=== PATIENT | female | born 1945 | race Native Hawaiian/Other Pacific Islander ===

== ENCOUNTER 2020-07-20 16:07 | Inpatient (IN) | payer OTHER ==
[2020-07-20] MEDS ORDERED: dilTIAZem 25 MG/5 ML INJ IV ONE (16:30)
--- NOTE | 2020-07-20 16:32 | Emergency Department Report ---
HPI - General Time Seen by Provider: 07/20/20 16:27 - HPI HPI: This is a 74-year-old female presents to the emergency department via EMS from home with complaint of generalized weakness and diarrhea over the past few days. When EMS arrived at her home she was sitting on the toilet due to the diarrhea. They found the patient to be in atrial fibrillation with RVR with a heart rate going between 150 to 190 bpm. This is new onset for the patient as she denies having any past medical history. She does not have a primary care physician but does follow-up for yearly blood work through a local clinic. The patient does have some history of orthopedic or spinal problems for which the patient sometimes gets injections. She denies any recent travel or sick contacts at home. Patient denies any chest pain, palpitations, lower extremity swelling, nausea, vomiting or fever. Patient was found to have a pulse ox of 65% on room air with EMS and was placed on a nonrebreather. Initially the pulse ox went up into the 90s but then went back down. She denies any tobacco or illicit drug use. ED Review of Systems ROS: Stated complaint: WEAKNESS Other details as noted in HPI Comment: All other systems reviewed and negative Constitutional: denies: chills, fever Eyes: denies: eye pain, vision change ENT: denies: ear pain, throat pain Respiratory: shortness of breath. denies: cough Cardiovascular: denies: chest pain, edema Gastrointestinal: diarrhea. denies: vomiting Genitourinary: denies: dysuria, discharge Musculoskeletal: denies: joint swelling, arthralgia Skin: denies: rash, lesions Neurological: denies: headache, weakness Physical Exam - Physical Exam Physical Exam: GENERAL: Patient is ill-appearing. HENT: Normocephalic. Atraumatic. Patient has moist mucous membranes. EYES: Extraocular motions are intact. NECK: Supple. Trachea is midline. CHEST/LUNGS: Rhonchi heard bilaterally. The patient has tachypnea and accessory muscle use. There is conversational dyspnea. HEART/CARDIOVASCULAR: Irregular rhythm with moderate tachycardia. ABDOMEN: Abdomen is soft, nontender. Patient has normal bowel sounds. SKIN: Skin is warm and dry. NEURO: The patient is awake, alert, and oriented. The patient is cooperative. The patient has no focal neurologic deficits. Normal speech. MUSCULOSKELETAL: There is no tenderness or deformity. There is no limitation range of motion. ED Course - Reevaluation(s) Reevaluation #1: 07/20/20 16:34 RT came to bedside to evaluate the patient. The patient still has tachypnea despite being on a nonrebreather. She was placed on BiPAP. The patient is in A. fib with RVR with a rate of 130 to 150 bpm. Orders have been placed for an IV placement, IV fluid and Cardizem. - ABG Interpretation Ph: [phone] PCO2: 33 PO2: 52 Bicarbonate: 20 Interpretation: other (Hypoxemia) ED Medical Decision Making - Lab Data Result diagrams: 07/20/20 17:04 07/20/20 17:04 - EKG Data -: EKG Interpreted by Me - EKG Data When compared to previous EKG there are: previous EKG unavailable Interpretation: other (Atrial fibrillation with a rate of 137 bpm. PVCs. Normal axis. Q waves to the inferior leads) - Radiology Data Radiology results: image reviewed interpreted by me: Abdominal x-ray shows nonspecific nonobstructive bowel gas. No free air. Chest x-ray shows bilateral patchy infiltrates concerning for pneumonia. No obvious pleural effusions. No pneumothorax. - Medical Decision Making The EMS call for this patient initially was for some generalized weakness and diarrhea over the past few days. Upon arrival the patient was found to have hypoxia with a room air pulse ox of about 65%. She was placed on a nonrebreather which did initially improve the oxygen saturation but then it started to come down again. During their initial evaluation the patient was also found to have an irregular rhythm and a heart rate going between 150 to 190 bpm. Upon arrival to the emergency department the patient appears to be in atrial fibrillation with RVR. The heart rate at this time is between 130 and 150 bpm. The patient also appears to have some respiratory distress. She has tachypnea, rhonchorous breath sounds, accessory muscle use and conversational dyspnea. The patient still had some hypoxia on the nonrebreather. We tried high flow oxygen by nasal cannula without any improvement so the patient was placed on BiPAP. The patient's pulse ox went up into the 90s and her tachypnea decreased, as did the work of breathing. The EKG confirms A. fib with RVR. The patient was given a dose of Cardizem which did provide rate control but she did not convert back to a sinus rhythm. An ABG was done that did not show any significant acid-base disturbances but did show hypoxemia with a PO2 of 52. An abdominal x-ray was done secondary to the patient's significant diarrhea complaints but there was no acute process found. Chest x-ray shows patchy bilateral infiltrates concerning for pneumonia. Blood cultures were sent and the patient was started on azithromycin. Given the shortness of breath, hypoxemia, and the x-ray results of bilateral pneumonia, along with this current pandemic, the patient is high suspicion for COVID-19. The patient was placed in isolation and on droplet precautions. She was given a dose of Solu-Medrol. The patient also initially presented with some hypotension and was given IV fluid resuscitation with improvement. Patient's labs shows some hypokalemia with a potassium of 3, acute renal insufficiency with a GFR of about 30, and elevated inflammatory markers consistent with COVID-19 such as D-dimer, ferritin, LDH and CRP. The patient will be admitted to the ICU on BiPAP and was accepted for admission by the hospitalist, Dr. Fenton. Critical Care Time: Yes Critical care time in (mins) excluding proc time.: 35 Critical care attestation.: If time is entered above; I have spent that time in minutes in the direct care of this critically ill patient, excluding procedure time. Critical care time was spent on this patient in doing her initial evaluation, multiple reevaluations, ordering and interpretation of labs and imaging, IV steroids and antibiotics, supplemental oxygen and titration of the BiPAP, and multiple discussions with the patient. Critical Care Time: 35 minutes ED Disposition Clinical Impression: Acute hypoxemic respiratory failure, Suspected 2019 novel coronavirus infection, Acute kidney injury (IKE) with acute tubular necrosis (ATN), New onset atrial fibrillation, Atrial fibrillation with RVR Pneumonia Qualifiers: Pneumonia type: due to unspecified organism Laterality: bilateral Lung location: unspecified part of lung Qualified Code(s): J18.9 - Pneumonia, unspecified organism Disposition: OP ADMIT IP TO THIS HOSP Is pt being admited?: Yes Condition: Serious Time of Disposition: 22:43
[2020-07-20] MEDS: SODIUM CHLORIDE 0.9% 1000 ML 1,000 ML IV ONE ×2 (16:52→19:47)
[2020-07-20 17:22] LABS: Basophils % (Auto) 0.1 % (0.0-1.8); Hematocrit 40.3 % (30.3-42.9); Hemoglobin 13.1 gm/dl (10.1-14.3); Lymphocytes # (Auto) 0.6 K/mm3 (1.2-5.4); Lymphocytes % (Auto) 6.9 % (13.4-35.0); Mean Corpuscular HGB Conc 33 % (30-34); Mean Corpuscular Volume 83 fl (79-97); Monocytes # (Auto) 0.5 K/mm3 (0.0-0.8); Monocytes % (Auto) 5.2 % (0.0-7.3); Platelet Count 240 K/mm3 (140-440); Red Blood Count 4.86 M/mm3 (3.65-5.03); Red Cell Distribution Width 14.2 % (13.2-15.2)
[2020-07-20] MEDS ORDERED: methylPREDNISolone Sod Succinate 125 MG/2 ML INJ IV ONE (17:23)
--- NOTE | 2020-07-20 17:23 | XRay Report ---
CHEST AND ABDOMINAL SERIES HISTORY: Diarrhea. Arrhythmias. Chest one view: Heart size is mildly enlarged. Opacity is scattered diffusely. Pneumonia is favored o elizabeth edema. Two-view abdomen: Gas is scattered throughout the abdomen in a nonobstructive fashion. Negative for f ree air or suspicious calcification. Signer Name: Jhoan Ramires MD Signed: 07/20/2020 5:18 PM Workstation Name: [id number]
[2020-07-20] MEDS ORDERED: AZITHROMYCIN/NS 500 MG/250 ML 500 MG/250 ML BAG IV ONE (17:24)
[2020-07-20 17:31] LABS: INR 1.05 (0.87-1.13); Partial Thromboplastin Time 27.7 Sec. (24.2-36.6)
[2020-07-20 17:40] LABS: Alanine Aminotransferase 16 units/L (7-56); Albumin 2.5 g/dL (3.9-5); BUN/Creatinine Ratio 28; Blood Urea Nitrogen 44 mg/dL (7-17); Calcium 6.3 mg/dL (8.4-10.2); Hemolysis Index 7
[2020-07-20 17:50] LABS: Free T4 (Free Thyroxine) 1.14 ng/dL (0.76-1.46)
--- NOTE | 2020-07-20 18:23 | History and Physical Report ---
History of Present Illness Chief complaint: I feel sick History of present illness: 74 YO Female with No PMH presents to ED for evaluation. Patient reports "I feel sick". Patient states that she has experienced generalized weakness, multiple loose stools, shortness of breath, malaise, fatigue, decreased exercise buddy erance, and dry cough over the past 1 week with worsening symptoms over the past 3 days. EMS was notified and upon arrival the patient was found to be in distress with a pulse oximetry of 65% on room air. The patient was placed on nonrebreather mask and transported to [facility] for further evaluation and care of the aforementioned symptoms. The patient was seen and evaluated in the emergency department. All lab and imaging studies reviewed. Patient was found to have a pulse oximetry of 70% on room air which is consistent with acute hypoxemic respiratory failure. Chest x-ray revealed bilateral pneumonia, the patient was also found to have acute kidney injury, acidosis, as well as new onset atrial fibrillation with rapid ventricular response (heart rate 150-190 bpm). The patient was treated with medical cardioversion with normalization of patient heart rate. Patient admitted to medical floor and initiated on pneumonia protocol as well as coronavirus protocol. Cardiology team consulted in ED. Echocardiogram ordered and is pending at time of admission. Patient denies fever, chills, chest pain, palpitations, prolonged travel/immobility, individual/family history of DVT/PE/bleeding/blood clotting disorders, or known ill contacts. No prior admission for review. No medication listed at time of admission for reconciliation. Advanced care planning conducted in ED. Past History Past Medical History: No medical history, other (Reviewed) Past Surgical History: No surgical history, Other (Reviewed) Social history: , lives with family. denies: smoking, alcohol abuse, prescription drug abuse Family history: no significant family history, other (Reviewed) Medications and Allergies Allergies Allergy/AdvReac Type Severity Reaction Status Date / Time Penicillins Allergy Unknown Verified 07/20/20 17:25 Active Meds: Active Medications Sodium Chloride (Nacl 0.9% 1000 Ml) 1,000 mls @ 250 mls/hr IV ONCE ONE Stop: 07/20/20 20:27 Last Admin: 07/20/20 16:52 Dose: 250 mls/hr Documented by: Azithromycin (Zithromax/Ns) 500 mg in 250 mls @ 250 mls/hr IV ONCE ONE; Protocol Stop: 07/20/20 18:23 Potassium Chloride (Kcl 10meq/100ml) 10 meq in 100 mls @ 100 mls/hr IV Q1H KLAUS Stop: 07/20/20 20:59 Review of Systems Constitutional: weakness, malaise, lethargy, no weight gain, no fever, no chills Ears, nose, mouth and throat: no ear pain, no ear discharge, no nasal congestion Breasts: no change in shape Cardiovascular: no palpitations, no edema Respiratory: cough, shortness of breath, congestion, pain on inspiration, no pleurisy Gastrointestinal: diarrhea, no abdominal pain, no nausea, no vomiting, no constipation, no change in bowel habits Genitourinary Female: no pelvic pain, no flank pain, no dysuria, no urinary frequency, no urgency Rectal: no pain, no incontinence, no bleeding Musculoskeletal: no neck stiffness, no neck pain, no shooting arm pain, no arm numbness/tingling, no low back pain Integumentary: no rash, no pruritis, no redness, no sores, no wounds Neurological: no transient paralysis, no paralysis, no weakness, no parathesias, no numbness, no tingling Psychiatric: no anxiety, no memory loss, no change in sleep habits, no sleep disturbances, no hypersomnia, no change in appetite, no change in libido Endocrine: no cold intolerance, no heat intolerance, no polyphagia, no polydipsia, no polyuria, no excessive sweating Hematologic/Lymphatic: no easy bruising, no easy bleeding, no lymphadenopathy, no lymphedema Allergic/Immunologic: no urticaria, no wheezing, no anaphylaxis Exam - Constitutional Vitals: Temp Pulse Resp BP Pulse Ox 98.0 F 104 H 36 H 114/71 91 07/20/20 16:34 07/20/20 18:01 07/20/20 18:01 07/20/20 18:01 07/20/20 18:01 General appearance: Present: mild distress, obese - EENT Eyes: Present: PERRL ENT: hearing intact, clear oral mucosa - Neck Neck: Present: supple, normal ROM - Respiratory Respiratory effort: labored, accessory muscle use, stridor Respiratory: bilateral: diminished, rhonchi - Cardiovascular Rhythm: irregularly irregular Heart Sounds: Present: S1 & S2. Absent: rub, click - Extremities Extremities: pulses symmetrical, No edema Peripheral Pulses: within normal limits - Abdominal General gastrointestinal: Present: soft, non-tender, non-distended, normal bowel sounds Female genitourinary: Present: normal - Integumentary Integumentary: Present: clear, warm, dry - Musculoskeletal Musculoskeletal: gait normal, strength equal bilaterally - Psychiatric Psychiatric: appropriate mood/affect, intact judgment & insight - Neurologic Neurologic: CNII-XII intact, moves all extremities HEART Score - HEART Score Troponin: Troponin T < 0.010 ng/mL (0.00-0.029) 07/20/20 17:04 Results - Labs CBC & Chem 7: 07/20/20 17:04 07/20/20 17:04 Labs: Abnormal lab results 07/20/20 07/20/20 07/20/20 Range/Units 17:04 17:04 17:04 MCH 27 L (28-32) pg Lymph % (Auto) 6.9 L (13.4-35.0) % Lymph # (Auto) 0.6 L (1.2-5.4) K/mm3 Seg Neutrophils % 87.8 H (40.0-70.0) % Seg Neutrophils # 8.1 H (1.8-7.7) K/mm3 D-Dimer 328.25 H (0-234) ng/mlDDU Potassium 3.0 L (3.6-5.0) mmol/L Carbon Dioxide 18 L (22-30) mmol/L BUN 44 H (7-17) mg/dL Creatinine 1.6 H (0.6-1.2) mg/dL Glucose 142 H (65-100) mg/dL Calcium 6.3 L (8.4-10.2) mg/dL NT-Pro-B Natriuret Pep 2862 H (0-900) pg/mL Total Protein 4.9 L (6.3-8.2) g/dL Albumin 2.5 L (3.9-5) g/dL TSH (0.270-4.200) mlU/mL 07/20/20 Range/Units 17:04 MCH (28-32) pg Lymph % (Auto) (13.4-35.0) % Lymph # (Auto) (1.2-5.4) K/mm3 Seg Neutrophils % (40.0-70.0) % Seg Neutrophils # (1.8-7.7) K/mm3 D-Dimer (0-234) ng/mlDDU Potassium (3.6-5.0) mmol/L Carbon Dioxide (22-30) mmol/L BUN (7-17) mg/dL Creatinine (0.6-1.2) mg/dL Glucose (65-100) mg/dL Calcium (8.4-10.2) mg/dL NT-Pro-B Natriuret Pep (0-900) pg/mL Total Protein (6.3-8.2) g/dL Albumin (3.9-5) g/dL TSH 0.164 L (0.270-4.200) mlU/mL Assessment and Plan - Patient Problems (1) Acute hypoxemic respiratory failure Current Visit: Yes Status: Acute Plan to address problem: Chest x-ray, supplemental oxygen, pulse oximetry, nebulizer therapy, prone positioning while in bed, noninvasive positive pressure ventilation as clinically indicated. (2) Suspected 2019 novel coronavirus infection Current Visit: Yes Status: Acute Plan to address problem: Coronavirus protocol: Contact precaution, isolation precautions, IV antibiotic therapy, IV steroid therapy, vitamin C supplementation, vitamin D supplementation, zinc supplementation, prophylactic anticoagulation. (3) Pneumonia Current Visit: Yes Status: Acute Plan to address problem: Pneumonia protocol: Chest x-ray, CBC, CMP, supplemental oxygen, pulse oximetry, nebulizer therapy, blood culture. (4) Obesity hypoventilation syndrome Current Visit: Yes Status: Acute Plan to address problem: Balanced diet, increase physical activity at discharge, outpatient pulmonary follow-up for sleep study. (5) Acute kidney injury (IKE) with acute tubular necrosis (ATN) Current Visit: Yes Status: Acute Plan to address problem: Supportive care, BMP, repeat BMP in a.m., encourage oral intake, care is taken to avoid fluid overload to decrease likelihood of pulmonary edema. Monitor fluid balance. (6) Metabolic acidosis Current Visit: Yes Status: Acute Plan to address problem: Supportive care, BMP, repeat BMP in a.m. (7) DVT prophylaxis Current Visit: Yes Status: Acute Plan to address problem: SCD to bilateral lower extremities while in bed, prophylactic anticoagulation (8) Advance care planning Current Visit: Yes Status: Acute Plan to address problem: Disease education conducted, care plan discussed, diagnosis discussed, prognosis discussed, patient knowledges understanding agree with care plan, +30 minutes.
[2020-07-20] MEDS ORDERED: ACETAMINOPHEN 325 MG TAB PO PRN (18:25)
[2020-07-20] MEDS ORDERED: ONDANSETRON 4 MG/2 ML INJ IV PRN (18:25)
[2020-07-20] MEDS ORDERED: ALBUTEROL 2.5 MG/3 ML NEBU IH PRN (18:25)
[2020-07-20 18:46] LABS: C-Reactive Protein 11.9 mg/dL (0.00-1.30)
[2020-07-20] MEDS: POTASSIUM CHLORIDE 10 MEQ 10 MEQ/100 ML BAG IV SCH ×3 (19:34→21:43)
[2020-07-20] MEDS ORDERED: cefTRIAXone/NS 2 GM/100 ML 2 GM/100 ML BAG IV SCH (20:00)
[2020-07-20] MEDS: ASCORBIC ACID 500 MG TAB PO SCH (22:45)
[2020-07-20] MEDS: HEPARIN 5,000 UNIT/1 ML VIAL SUB-Q SCH (22:46)
[2020-07-20] MEDS: ZINC SULFATE 220 MG CAP PO SCH (22:46)
[2020-07-20] MEDS: FAMOTIDINE 20 MG TAB PO SCH (22:46)
[2020-07-21] MEDS: dilTIAZem 30 MG TAB PO SCH ×4 (00:05→17:46)
[2020-07-21] MEDS: methylPREDNISolone Sod Succinate 40 MG/1 ML INJ IV SCH ×2 (02:26→09:18)
[2020-07-21 03:30] LABS: Basophils % (Auto) 0.2 % (0.0-1.8); Eosinophils % (Auto) 0.1 % (0.0-4.3); Hematocrit 41.4 % (30.3-42.9); Hemoglobin 13.6 gm/dl (10.1-14.3); Lymphocytes # (Auto) 1.1 K/mm3 (1.2-5.4); Lymphocytes % (Auto) 9.8 % (13.4-35.0); Mean Corpuscular HGB Conc 33 % (30-34); Mean Corpuscular Volume 84 fl (79-97); Monocytes # (Auto) 0.4 K/mm3 (0.0-0.8); Monocytes % (Auto) 3.6 % (0.0-7.3); Platelet Count 247 K/mm3 (140-440); Red Blood Count 4.95 M/mm3 (3.65-5.03); Red Cell Distribution Width 14.3 % (13.2-15.2)
[2020-07-21 03:47] LABS: Calcium 7.1 mg/dL (8.4-10.2)
[2020-07-21] MEDS: HEPARIN 5,000 UNIT/1 ML VIAL SUB-Q SCH (09:16)
[2020-07-21] MEDS: ZINC SULFATE 220 MG CAP PO SCH ×2 (09:18→21:01)
[2020-07-21] MEDS: FAMOTIDINE 20 MG TAB PO SCH ×2 (09:18→21:01)
[2020-07-21] MEDS: ASCORBIC ACID 500 MG TAB PO SCH ×2 (09:18→21:01)
[2020-07-21] MEDS ORDERED: CHOLECALCIFEROL (VIT D3) 1000 UNIT (25 mcg) TAB PO SCH (10:00)
--- NOTE | 2020-07-21 10:15 | Consultation ---
History of Present Illness - Reason for Consult Consult date: 07/21/20 Rule out COVID-19 Requesting physician: NATHAN GREY - History of Present Illness 74 years old female with history of morbid obesity, chronic lumbar spine problems, admitted on 07/20/2020 secondary to a week history of generalized malaise, weakness, dry cough, shortness of breath, symptoms worsened in the last 3 days. On arrival EMS O2 sats were down to 35%. Patient placed on nonrebreather mask. In the ED, initial temperature 98, HR, RR 21, O2 sat 95, BP 124/52. Sats dropped to 87%. Blood pressure dropped to 84/29. Initial WBC 9.2. Hemoglobin 13.1 platelet 240. D-dimer 328. PaO2 52. Creatinine 1.6. CRP 11. Ferritin 774. Procalcitonin 0.4. Patient was found to have RVR A. fib in the ED. Chest x-ray shows bilateral infiltrates. Review of Systems: reviewed ED and H&P notes. Review of system deferred to minimize COVID-19 transmission. Past History Past Medical History: No medical history, other (Reviewed) Past Surgical History: No surgical history, Other (Reviewed) Social history: , lives with family. denies: smoking, alcohol abuse, prescription drug abuse Family history: no significant family history, other (Reviewed) Medications and Allergies Allergies Allergy/AdvReac Type Severity Reaction Status Date / Time Penicillins Allergy Unknown Verified 07/20/20 17:25 Active Meds: Active Medications Acetaminophen (Acetaminophen 325 Mg Tab) 650 mg PO Q4H PRN PRN Reason: Pain MILD(1-3)/Fever >100.5/ALONSO Albuterol (Albuterol 2.5 Mg/3 Ml Nebu) 2.5 mg IH Q4HRT PRN PRN Reason: Shortness Of Breath Ascorbic Acid (Ascorbic Acid 500 Mg Tab) 500 mg PO BID [facility] Last Admin: 07/21/20 09:18 Dose: Not Given Documented by: Cholecalciferol (Cholecalciferol (Vit D3) 1000 Unit (25 Mcg) Tab) 1,000 unit PO QDAY [facility] Last Admin: 07/21/20 09:24 Dose: Not Given Documented by: Diltiazem HCl (Diltiazem 30 Mg Tab) 30 mg PO Q6HR [facility] Last Admin: 07/21/20 05:25 Dose: 30 mg Documented by: Famotidine (Famotidine 20 Mg Tab) 20 mg PO BID [facility] Last Admin: 07/21/20 09:18 Dose: Not Given Documented by: Heparin Sodium (Porcine) (Heparin 5,000 Unit/1 Ml Vial) 5,000 unit SUB-Q Q12HR [facility] Last Admin: 07/21/20 09:16 Dose: 5,000 unit Documented by: Azithromycin (Zithromax/Ns) 500 mg in 250 mls @ 250 mls/hr IV Q24H [facility]; Protocol Methylprednisolone Sodium Succinate (Methylprednisolone Sod Succinate 40 Mg/1 Ml Inj) 40 mg IV Q8H [facility] Last Admin: 07/21/20 09:18 Dose: 40 mg Documented by: Ondansetron HCl (Ondansetron 4 Mg/2 Ml Inj) 4 mg IV Q8H PRN PRN Reason: Nausea And Vomiting Sodium Chloride (Sodium Chloride 0.9% 10 Ml Flush Syringe) 10 ml IV BID [facility] Last Admin: 07/21/20 09:25 Dose: 10 ml Documented by: Sodium Chloride (Sodium Chloride 0.9% 10 Ml Flush Syringe) 10 ml IV PRN PRN PRN Reason: LINE FLUSH Zinc Sulfate (Zinc Sulfate 220 Mg Cap) 220 mg PO BID [facility] Last Admin: 07/21/20 09:18 Dose: Not Given Documented by: Physical Examination - Physical Exam Narrative exam: Physical exam deferred to minimize COVID-19 transmission during pandemic. ER and internal medicine physical examination notes reviewed. - Constitutional Vitals: Vital Signs Temp Pulse Resp BP Pulse Ox 97.9 F 89 29 H 105/33 91 07/21/20 04:08 07/21/20 05:25 07/21/20 04:30 07/21/20 04:08 07/21/20 04:30 Temperature -Last 24 Hours Temperature 97.9 F Temperature 98.0 F Temperature 98.0 F Results - Labs CBC & Chem 7: 07/21/20 03:13 07/21/20 03:13 Labs: Abnormal lab results 07/20/20 07/20/20 07/20/20 Range/Units 17:04 17:04 17:04 MCH 27 L (28-32) pg Lymph % (Auto) 6.9 L (13.4-35.0) % Lymph # (Auto) 0.6 L (1.2-5.4) K/mm3 Seg Neutrophils % 87.8 H (40.0-70.0) % Seg Neutrophils # 8.1 H (1.8-7.7) K/mm3 D-Dimer 328.25 H (0-234) ng/mlDDU POC ABG pO2 (83-108) mmHg ABG Oxyhemoglobin (94-98) ABG Glucose (65-95) mg/dL Sodium (137-145) mmol/L Potassium 3.0 L (3.6-5.0) mmol/L Chloride (98-107) mmol/L Carbon Dioxide 18 L (22-30) mmol/L BUN 44 H (7-17) mg/dL Creatinine 1.6 H (0.6-1.2) mg/dL Glucose 142 H (65-100) mg/dL Calcium 6.3 L (8.4-10.2) mg/dL Ferritin (10.0-200.0) ng/mL Lactate Dehydrogenase (91-180) units/L C-Reactive Protein (0.00-1.30) mg/dL NT-Pro-B Natriuret Pep 2862 H (0-900) pg/mL Total Protein 4.9 L (6.3-8.2) g/dL Albumin 2.5 L (3.9-5) g/dL TSH (0.270-4.200) mlU/mL Arterial Blood Glucose (65-95) mg/dL Arterial Blood Ionized Calcium (4.6-5.3) mg/dL 07/20/20 07/20/20 07/20/20 Range/Units 17:04 17:59 17:59 MCH (28-32) pg Lymph % (Auto) (13.4-35.0) % Lymph # (Auto) (1.2-5.4) K/mm3 Seg Neutrophils % (40.0-70.0) % Seg Neutrophils # (1.8-7.7) K/mm3 D-Dimer (0-234) ng/mlDDU POC ABG pO2 (83-108) mmHg ABG Oxyhemoglobin (94-98) ABG Glucose (65-95) mg/dL Sodium (137-145) mmol/L Potassium (3.6-5.0) mmol/L Chloride (98-107) mmol/L Carbon Dioxide (22-30) mmol/L BUN (7-17) mg/dL Creatinine (0.6-1.2) mg/dL Glucose (65-100) mg/dL Calcium (8.4-10.2) mg/dL Ferritin 774.0 H (10.0-200.0) ng/mL Lactate Dehydrogenase 611 H (91-180) units/L C-Reactive Protein 11.90 H (0.00-1.30) mg/dL NT-Pro-B Natriuret Pep (0-900) pg/mL Total Protein (6.3-8.2) g/dL Albumin (3.9-5) g/dL TSH 0.164 L (0.270-4.200) mlU/mL Arterial Blood Glucose (65-95) mg/dL Arterial Blood Ionized Calcium (4.6-5.3) mg/dL 07/20/20 07/21/20 07/21/20 Range/Units 19:33 03:13 03:13 MCH (28-32) pg Lymph % (Auto) 9.8 L (13.4-35.0) % Lymph # (Auto) 1.1 L (1.2-5.4) K/mm3 Seg Neutrophils % 86.3 H (40.0-70.0) % Seg Neutrophils # 9.4 H (1.8-7.7) K/mm3 D-Dimer (0-234) ng/mlDDU POC ABG pO2 52.0 L (83-108) mmHg ABG Oxyhemoglobin 84.1 L (94-98) ABG Glucose 142 H (65-95) mg/dL Sodium 121 L D (137-145) mmol/L Potassium (3.6-5.0) mmol/L Chloride 89.8 L (98-107) mmol/L Carbon Dioxide 19 L (22-30) mmol/L BUN 49 H (7-17) mg/dL Creatinine 1.5 H (0.6-1.2) mg/dL Glucose 149 H (65-100) mg/dL Calcium 7.1 L (8.4-10.2) mg/dL Ferritin (10.0-200.0) ng/mL Lactate Dehydrogenase (91-180) units/L C-Reactive Protein (0.00-1.30) mg/dL NT-Pro-B Natriuret Pep (0-900) pg/mL Total Protein (6.3-8.2) g/dL Albumin (3.9-5) g/dL TSH (0.270-4.200) mlU/mL Arterial Blood Glucose 142 H (65-95) mg/dL Arterial Blood Ionized Calcium 4.3 L (4.6-5.3) mg/dL Assessment and Plan Cultures: Blood culture pending SARS CoV2 PCR pending Assessment: 74 years old female with history of morbid obesity, chronic lumbar spine problems, admitted on 07/20/2020 secondary to a week history of generalized malaise, weakness, dry cough, shortness of breath, symptoms worsened in the last 3 days: #Severe sepsis: Present patient with tachycardia, hypotension, hypoxia, IKE; likely secondary to bilateral pneumonia. Procalcitonin elevated at 0.4 in the setting of acute renal failure, unclear significance. #Bilateral pneumonia: High suspicion for COVID-19 pneumonia. Ferritin 774. CRP 11. Chest x-ray with bilateral infiltrates. #Acute hypoxemic respiratory failure: O2 sat dropped to 70s. Patient currently on #IKE: Likely secondary to severe COVID-19 infection #RVR A. fib: Due to sepsis Recommendations: -Pulmonary consult -Follow up SARS-CoV-2 PCR if positive start Dexamethasone 6 mg IV/PO daily for 10 days and Remdesivir for 5 days -Monitor inflammatory markers - ferritin, Ddimer, CRP, LDH -Continue anticoagulation per System Protocol -Prone positioning as possible -Continue ceftriaxone and azithromycin, for now -Follow-up blood cultures All laboratory, cultures and imaging were reviewed. Guarded prognosis Will follow Mary Meade MD Infectious Diseases Media [employer]anner [facility] [place], [facility] ([facility] M [phone] O [phone]
--- NOTE | 2020-07-21 10:21 | Progress Note ---
Assessment and Plan Assessment and plan: -- Acute hypoxemic respiratory failure Current Visit: Yes Status: Acute Plan to address problem: Probably secondary to reactive airway disease Oxygen titrate O2 sats to more than 90%, BiPAP as needed Nebulizers, IV steroids, IV antibiotics, inhalation steroids --New onset A. fib with rapid ventricular rate; Current Visit: Yes Status: Acute Plan to address problem: on Cardizem, cardiology evaluation noted and appreciated, patient is on heparin drip Closely monitor --PUI /suspected 2019 novel coronavirus infection Current Visit: Yes Status: Acute Plan to address problem: Isolation protocols, mack PCR test Inflammatory markers, ID consult if needed --Pneumonia Current Visit: Yes Status: Acute Plan to address problem: pneumonia protocol: Empiric antibiotics Rocephin and Zithromax Follow mack PCR test, procalcitonin levels high --Obesity hypoventilation syndrome Current Visit: Yes Status: Acute Plan to address problem: Oxygen/BiPAP as needed, if no improvement intubated Pulmonary consult if needed. --Morbid obesity; BMI 43.0 Current Visit: Yes Status: Acute Plan to address problem: Patient's respiratory symptoms probably secondary to obesity hypoventilation syndrome Oxygen, nebulizers, pulmonary consultation. --Possible KATY; Current Visit: Yes Status: Acute Plan to address problem: CPAP/BiPAP at night and as needed Patient needs sleep studies to rule out KATY --Acute kidney injury (IKE) ATN Current Visit: Yes Status: Acute Plan to address problem: Supportive care, BMP, repeat BMP in a.m., encourage oral intake, care is taken to avoid fluid overload to decrease likelihood of pulmonary edema. Monitor fluid balance. --Metabolic acidosis Current Visit: Yes Status: Acute Plan to address problem: Supportive care, BMP, repeat BMP in a.m. -- DVT prophylaxis Current Visit: Yes Status: Acute Plan to address problem: SCD to bilateral lower extremities while in bed, prophylactic anticoagulation -- Advance care planning Current Visit: Yes Status: Acute Plan to address problem: Disease education conducted, care plan discussed, diagnosis discussed, prognosis discussed, patient knowledges understanding agree with care plan, Closely monitor the patient and adjust management as needed Plan of care reviewed with the patient and her nurse History Interval history: I have seen and examined the patient at the bedside this morning Patient's chart and medications reviewed Patient is in acute respiratory distress on BiPAP saturating well Morbidly obese, alert and awake responding appropriately Vital signs reviewed Hospitalist Physical - Constitutional Vitals: Temp Pulse Resp BP Pulse Ox 97.9 F 89 29 H 105/33 91 07/21/20 04:08 07/21/20 05:25 07/21/20 04:30 07/21/20 04:08 07/21/20 04:30 General appearance: Present: mild distress, well-nourished, obese (Morbidly obese), other (On BiPAP) - EENT Eyes: Present: PERRL, EOM intact - Neck Neck: Present: supple, normal ROM - Respiratory Respiratory effort: normal Respiratory: bilateral: diminished, rhonchi, negative: rales, wheezing - Cardiovascular Rhythm: irregularly irregular Heart Sounds: Present: S1 & S2 - Extremities Extremities: no ischemia, No edema - Abdominal General gastrointestinal: soft, non-tender, non-distended, normal bowel sounds - Integumentary Integumentary: Present: clear, warm - Psychiatric Psychiatric: appropriate mood/affect, cooperative - Neurologic Neurologic: moves all extremities HEART Score - HEART Score Troponin: Troponin T < 0.010 ng/mL (0.00-0.029) 07/21/20 00:00 Results - Labs CBC & Chem 7: 07/21/20 03:13 07/21/20 03:13 Labs: Laboratory Last Values WBC 10.9 K/mm3 (4.5-11.0) 07/21/20 03:13 RBC 4.95 M/mm3 (3.65-5.03) 07/21/20 03:13 Hgb 13.6 gm/dl (10.1-14.3) 07/21/20 03:13 Hct 41.4 % (30.3-42.9) 07/21/20 03:13 MCV 84 fl (79-97) 07/21/20 03:13 MCH 28 pg (28-32) 07/21/20 03:13 MCHC 33 % (30-34) 07/21/20 03:13 RDW 14.3 % (13.2-15.2) 07/21/20 03:13 Plt Count 247 K/mm3 (140-440) 07/21/20 03:13 Lymph % (Auto) 9.8 % (13.4-35.0) L 07/21/20 03:13 [place] % (Auto) 3.6 % (0.0-7.3) 07/21/20 03:13 Eos % (Auto) 0.1 % (0.0-4.3) 07/21/20 03:13 Baso % (Auto) 0.2 % (0.0-1.8) 07/21/20 03:13 Lymph # (Auto) 1.1 K/mm3 (1.2-5.4) L 07/21/20 03:13 [place] # (Auto) 0.4 K/mm3 (0.0-0.8) 07/21/20 03:13 Eos # (Auto) 0.0 K/mm3 (0.0-0.4) 07/21/20 03:13 Baso # (Auto) 0.0 K/mm3 (0.0-0.1) 07/21/20 03:13 Seg Neutrophils % 86.3 % (40.0-70.0) H 07/21/20 03:13 Seg Neutrophils # 9.4 K/mm3 (1.8-7.7) H 07/21/20 03:13 PT 13.5 Sec. (12.2-14.9) 07/20/20 17:04 INR 1.05 (0.87-1.13) 07/20/20 17:04 APTT 27.7 Sec. (24.2-36.6) 07/20/20 17:04 D-Dimer 328.25 ng/mlDDU (0-234) H 07/20/20 17:04 ABG pH 7.412 (7.320-7.450) 07/20/20 19:33 POC ABG pCO2 33.6 mmHg (32.0-48.0) 07/20/20 19:33 POC ABG pO2 52.0 mmHg (83-108) L 07/20/20 19:33 POC ABG HCO3 20.9 07/20/20 19:33 ABG O2 Saturation 84.9 (0-100) 07/20/20 19:33 POC ABG Base Excess -2.9 07/20/20 19:33 ABG Hemoglobin 13.8 (12.0-17.5) 07/20/20 19:33 ABG Oxyhemoglobin 84.1 (94-98) L 07/20/20 19:33 ABG Methemoglobin 0.3 (0.0-1.5) 07/20/20 19:33 ABG Sodium 137.5 mmol/L (136.0-145.0) 07/20/20 19:33 ABG Potassium 3.4 mmol/L (3.40-4.50) 07/20/20 19:33 ABG Chloride 105.0 mmol/L (98-107) 07/20/20 19:33 ABG Glucose 142 mg/dL (65-95) H 07/20/20 19:33 Carboxyhemoglobin 0.7 (0.5-1.5) 07/20/20 19:33 FiO2 % 100 07/20/20 19:33 Sodium 121 mmol/L (137-145) L D 07/21/20 03:13 Potassium 3.8 mmol/L (3.6-5.0) D 07/21/20 03:13 Chloride 89.8 mmol/L (98-107) L 07/21/20 03:13 Carbon Dioxide 19 mmol/L (22-30) L 07/21/20 03:13 Anion Gap 16 mmol/L 07/21/20 03:13 BUN 49 mg/dL (7-17) H 07/21/20 03:13 Creatinine 1.5 mg/dL (0.6-1.2) H 07/21/20 03:13 Estimated GFR 34 ml/min 07/21/20 03:13 BUN/Creatinine Ratio 33 % 07/21/20 03:13 Glucose 149 mg/dL (65-100) H 07/21/20 03:13 Calcium 7.1 mg/dL (8.4-10.2) L 07/21/20 03:13 Magnesium 2.10 mg/dL (1.7-2.3) 07/20/20 19:24 Ferritin 774.0 ng/mL (10.0-200.0) H 07/20/20 17:59 Total Bilirubin 0.30 mg/dL (0.1-1.2) 07/20/20 17:04 AST 33 units/L (5-40) 07/20/20 17:04 ALT 16 units/L (7-56) 07/20/20 17:04 Alkaline Phosphatase 55 units/L (35-129) 07/20/20 17:04 Lactate Dehydrogenase 611 units/L (91-180) H 07/20/20 17:59 Troponin T < 0.010 ng/mL (0.00-0.029) 07/21/20 00:00 C-Reactive Protein 11.90 mg/dL (0.00-1.30) H 07/20/20 17:59 NT-Pro-B Natriuret Pep 2862 pg/mL (0-900) H 07/20/20 17:04 Total Protein 4.9 g/dL (6.3-8.2) L 07/20/20 17:04 Albumin 2.5 g/dL (3.9-5) L 07/20/20 17:04 Albumin/Globulin Ratio 1.0 % 07/20/20 17:04 Procalcitonin 0.41 ng/mL (<0.15) 07/20/20 17:59 TSH 0.164 mlU/mL (0.270-4.200) L 07/20/20 17:04 Free T4 1.14 ng/dL (0.76-1.46) 07/20/20 17:04 Arterial Blood Glucose 142 mg/dL (65-95) H 07/20/20 19:33 Arterial Blood Ionized Calcium 4.3 mg/dL (4.6-5.3) L 07/20/20 19:33 Microbiology: Microbiology 07/20/20 17:06 Peripheral/Venous Blood Culture - Preliminary Culture in Progress 07/20/20 17:04 Peripheral/Venous Blood Culture - Preliminary Culture in Progress Rodriguez/IV: Voiding Method External Female Catheter Active Medications - Current Medications Current Medications: Generic Name Dose Route Start Last Admin Trade Name Freq PRN Reason Stop Dose Admin Acetaminophen 650 mg 07/20/20 18:25 Acetaminophen 325 Mg Tab PO Q4H PRN Pain MILD(1-3)/Fever >100.5/ALONOS Albuterol 2.5 mg 07/20/20 18:25 Albuterol 2.5 Mg/3 Ml Nebu IH Q4HRT PRN Shortness Of Breath Ascorbic Acid 500 mg 07/20/20 22:00 07/21/20 09:18 Ascorbic Acid 500 Mg Tab PO Not Given BID KLAUS Cholecalciferol 1,000 unit 07/21/20 10:00 07/21/20 09:24 Cholecalciferol (Vit D3) 1000 Unit (25 Mcg) Tab PO Not Given QDAY KLAUS Diltiazem HCl 30 mg 07/21/20 00:00 07/21/20 05:25 Diltiazem 30 Mg Tab PO 30 mg Q6HR KLAUS Administration Famotidine 20 mg 07/20/20 22:00 07/21/20 09:18 Famotidine 20 Mg Tab PO Not Given BID [facility] Heparin Sodium (Porcine) 5,000 unit 07/20/20 22:00 07/21/20 09:16 Heparin 5,000 Unit/1 Ml Vial SUB-Q 5,000 unit Q12HR KLAUS Administration Azithromycin 500 mg in 250 mls @ 250 mls/hr 07/21/20 18:00 Zithromax/Ns IV Q24H [facility] Protocol Methylprednisolone Sodium Succinate 40 mg 07/21/20 02:00 07/21/20 09:18 Methylprednisolone Sod Succinate 40 Mg/1 Ml Inj IV 40 mg Q8H KLAUS Administration Ondansetron HCl 4 mg 07/20/20 18:25 Ondansetron 4 Mg/2 Ml Inj IV Q8H PRN Nausea And Vomiting Sodium Chloride 10 ml 07/20/20 22:00 07/21/20 09:25 Sodium Chloride 0.9% 10 Ml Flush Syringe IV 10 ml BID KLAUS Administration Sodium Chloride 10 ml 07/20/20 18:25 Sodium Chloride 0.9% 10 Ml Flush Syringe IV PRN PRN LINE FLUSH Zinc Sulfate 220 mg 07/20/20 22:00 07/21/20 09:18 Zinc Sulfate 220 Mg Cap PO Not Given BID KLAUS
--- NOTE | 2020-07-21 10:39 | Consultation ---
History of Present Illness Consult date: 07/21/20 Requesting physician: NATHAN GREY Consult reason: atrial fibrillation History of present illness: The pt 74 YO Female with no reported significant past medical history. She is previously unknown to our practice. She presented with c/o No generalized weakness, diarrhea, shortness of breath, malaise, fatigue, decreased exercise tolerance, and dry cough over the past 1 week with worsening symptoms over the past 3 days. EMS was notified and upon arrival the patient was found to be in distress with a pulse oximetry of 65% on room air. The patient was placed on nonrebreather mask and transported to [facility] for further evaluation/management. Chest x-ray revealed bilateral pneumonia, pt admitted as COVID-19 PUI, pt also found to have acute kidney injury, acidosis, as well as new onset atrial fibrillation with rapid ventricular response (heart rate 150-190 bpm). Pt was given IV cardizem which improved HR. Patient admitted to medical floor and initiated on pneumonia protocol as well as coronavirus protocol. Telemetry from overnight reviewed - pt in paroxysmal AFib/AFlutter with CVR, HR 60-70s. Past History Past Medical History: No medical history Past Surgical History: No surgical history, Other (Reviewed) Social history: , lives with family. denies: smoking, alcohol abuse, prescription drug abuse Family history: no significant family history, other (Reviewed) Medications and Allergies Allergies Allergy/AdvReac Type Severity Reaction Status Date / Time Penicillins Allergy Unknown Verified 07/20/20 17:25 Active Meds: Active Medications Acetaminophen (Acetaminophen 325 Mg Tab) 650 mg PO Q4H PRN PRN Reason: Pain MILD(1-3)/Fever >100.5/ALONSO Albuterol (Albuterol 2.5 Mg/3 Ml Nebu) 2.5 mg IH Q4HRT PRN PRN Reason: Shortness Of Breath Ascorbic Acid (Ascorbic Acid 500 Mg Tab) 500 mg PO BID [facility] Last Admin: 07/21/20 09:18 Dose: Not Given Documented by: Cholecalciferol (Cholecalciferol (Vit D3) 1000 Unit (25 Mcg) Tab) 1,000 unit PO QDAY [facility] Last Admin: 07/21/20 09:24 Dose: Not Given Documented by: Diltiazem HCl (Diltiazem 30 Mg Tab) 30 mg PO Q6HR [facility] Last Admin: 07/21/20 05:25 Dose: 30 mg Documented by: Famotidine (Famotidine 20 Mg Tab) 20 mg PO BID [facility] Last Admin: 07/21/20 09:18 Dose: Not Given Documented by: Heparin Sodium (Porcine) (Heparin 5,000 Unit/1 Ml Vial) 5,000 unit SUB-Q Q12HR [facility] Last Admin: 07/21/20 09:16 Dose: 5,000 unit Documented by: Azithromycin (Zithromax/Ns) 500 mg in 250 mls @ 250 mls/hr IV Q24H [facility]; Protocol Methylprednisolone Sodium Succinate (Methylprednisolone Sod Succinate 40 Mg/1 Ml Inj) 40 mg IV Q8H [facility] Last Admin: 07/21/20 09:18 Dose: 40 mg Documented by: Ondansetron HCl (Ondansetron 4 Mg/2 Ml Inj) 4 mg IV Q8H PRN PRN Reason: Nausea And Vomiting Sodium Chloride (Sodium Chloride 0.9% 10 Ml Flush Syringe) 10 ml IV BID [facility] Last Admin: 07/21/20 09:25 Dose: 10 ml Documented by: Sodium Chloride (Sodium Chloride 0.9% 10 Ml Flush Syringe) 10 ml IV PRN PRN PRN Reason: LINE FLUSH Zinc Sulfate (Zinc Sulfate 220 Mg Cap) 220 mg PO BID [facility] Last Admin: 07/21/20 09:18 Dose: Not Given Documented by: Review of Systems Constitutional: malaise, no weight loss, no weight gain Ears, nose, mouth and throat: no ear pain, no nose pain, no sinus pressure, no sinus pain Cardiovascular: shortness of breath, decreased exercise tolerance, no chest pain, no orthopnea, no palpitations, no rapid/irregular heart beat, no edema, no syncope, no lightheadedness Respiratory: cough, shortness of breath Gastrointestinal: diarrhea, no abdominal pain, no nausea, no vomiting Genitourinary Female: no pelvic pain, no flank pain, no dysuria, no urinary frequency, no urgency Musculoskeletal: no neck stiffness, no neck pain, no shooting arm pain, no arm n umbness/tingling, no low back pain, no shooting leg pain Integumentary: no rash, no pruritis, no redness, no sores, no wounds Neurological: no head injury, no paralysis, no parathesias, no numbness, no tingling, no seizures, no syncope Psychiatric: no anxiety Endocrine: no cold intolerance, no heat intolerance Hematologic/Lymphatic: no easy bruising Allergic/Immunologic: no urticaria Physical Examination Vital Signs Temp Pulse Resp BP Pulse Ox 98.0 F 133 H 31 H 124/52 95 07/20/20 16:34 07/20/20 16:34 07/20/20 16:34 07/20/20 16:34 07/20/20 16:34 General appearance: no acute distress HEENT: Positive: PERRL, Normocephaly, Mucus Membranes Moist Neck: Positive: neck supple, trachea midline Cardiac: Positive: irregularly irregular, S1/S2 Lungs: Positive: Decreased Breath Sounds Neuro: Positive: Grossly Intact Abdomen: Negative: Tender Skin: Negative: Rash Musculoskeletal: No Pain Extremities: Absent: edema Results 07/21/20 03:13 07/21/20 03:13 Cardiac Enzymes 07/20/20 07/20/20 Range/Units 17:04 17:59 AST 33 (5-40) units/L Lactate Dehydrogenase 611 H (91-180) units/L Coagulation 07/20/20 Range/Units 17:04 PT 13.5 (12.2-14.9) Sec. INR 1.05 (0.87-1.13) APTT 27.7 (24.2-36.6) Sec. CBC 07/20/20 07/21/20 Range/Units 17:04 03:13 WBC 9.2 10.9 (4.5-11.0) K/mm3 RBC 4.86 4.95 (3.65-5.03) M/mm3 Hgb 13.1 13.6 (10.1-14.3) gm/dl Hct 40.3 41.4 (30.3-42.9) % Plt Count 240 247 (140-440) K/mm3 Lymph # (Auto) 0.6 L 1.1 L (1.2-5.4) K/mm3 [place] # (Auto) 0.5 0.4 (0.0-0.8) K/mm3 Eos # (Auto) 0.0 0.0 (0.0-0.4) K/mm3 Baso # (Auto) 0.0 0.0 (0.0-0.1) K/mm3 Comprehensive Metabolic Panel 07/20/20 07/21/20 Range/Units 17:04 03:13 Sodium 138 121 L D (137-145) mmol/L Potassium 3.0 L 3.8 D (3.6-5.0) mmol/L Chloride 103.6 89.8 L (98-107) mmol/L Carbon Dioxide 18 L 19 L (22-30) mmol/L BUN 44 H 49 H (7-17) mg/dL Creatinine 1.6 H 1.5 H (0.6-1.2) mg/dL Glucose 142 H 149 H (65-100) mg/dL Calcium 6.3 L 7.1 L (8.4-10.2) mg/dL AST 33 (5-40) units/L ALT 16 (7-56) units/L Alkaline Phosphatase 55 (35-129) units/L Total Protein 4.9 L (6.3-8.2) g/dL Albumin 2.5 L (3.9-5) g/dL - Imaging and Cardiology Echo: pending EKG: report reviewed, image reviewed EKG interpretations - Telemetry EKG Rhythm: Atrial Fibrillation - EKG Supraventricular dysrhythmia: atrial fibrillation Assessment and Plan Pt admitted with PNA and is COVID-19 PUI. She was noted to be in atrial fibrillation for which cardiology has been consulted. Telemetry from overnight reviewed - pt in paroxysmal AFib/AFlutter with CVR, HR 60-70s. No known prior diagnosis of atrial fibrillation or atrial flutter. Agree with PO cardizem at this time. Initiate heparin gtt in regards to PAFib/AFlutter and consider conversion to OAC prior to hospital discharge - renal insufficiency noted, f/u BMP in AM. Obtain tte pending COVID-19 test results. DDimer is noted to be elevated - further eval/management per primary team. Will follow. The patient has been seen in conjunction with Dr. De Santiago who agrees with the assessment and plan care. - Patient Problems (1) Acute hypoxemic respiratory failure Current Visit: Yes Status: Acute (2) Pneumonia Current Visit: Yes Status: Acute Qualifiers: Pneumonia type: due to unspecified organism Laterality: bilateral Lung location: unspecified part of lung Qualified Code(s): J18.9 - Pneumonia, unspecified organism (3) Suspected 2019 novel coronavirus infection Current Visit: Yes Status: Acute (4) New onset atrial fibrillation Current Visit: Yes Status: Acute (5) IKE (acute kidney injury) Current Visit: Yes Status: Acute
[2020-07-21] MEDS ORDERED: HEPARIN 10,000 UNITS/10 ML VIAL IV ONE (12:00)
[2020-07-21] MEDS ORDERED: HEPARIN/ 0.45% NACL DRIP 25,000 UNIT/500 ML BAG IV SCH (12:30)
[2020-07-21] MEDS ORDERED: methylPREDNISolone Sod Succinate 40 MG/1 ML INJ IV SCH (14:59)
--- NOTE | 2020-07-21 15:10 | Event Note ---
Date: 07/21/20 Patient was admitted with new onset A. fib with rapid ventricular rate, on Cardizem and heparin drip Acute hypoxic respiratory failure, on BiPAP nebulizers, acute kidney injury, morbidly obese Suddenly went into acute hypoxic hypercapnic respiratory failure, patient was hypoxic even on BiPAP Stat ABG, discussed with assistant business manager Dr. Lopez, discussed with charge nurse of ICU Jake Fabiano Transfer the patient to ICU for close observation and possible intubation and mechanical ventilation if needed Plan of care discussed with the patient's nurse charge nurse as well as ICU charge nurse and assistant business manager Dr. Lopez COVID-19 positive. Total critical care time 50 minutes.
--- NOTE | 2020-07-21 16:40 | XRay Report ---
CHEST 1 VIEW 07/21/2020 3:32 PM INDICATION / CLINICAL INFORMATION: Acute hypoxic respiratory failure. COMPARISON: 07/20/2020 FINDINGS: SUPPORT DEVICES: None. HEART / MEDIASTINUM: Stable. LUNGS / PLEURA: Worsening pulmonary airspace disease with more confluent hazy and consolidative opaci ties throughout the lungs. No pneumothorax. ADDITIONAL FINDINGS: No significant additional findings. IMPRESSION: 1. Interval worsening. Signer Name: Fabiano Tavarez MD Signed: 07/21/2020 4:35 PM Workstation Name: [id number]
[2020-07-21] MEDS: methylPREDNISolone Sod Succinate 125 MG/2 ML INJ IV SCH ×2 (17:46→21:02)
[2020-07-21] MEDS ORDERED: HEPARIN 10,000 UNITS/10 ML VIAL IV PRN (18:00)
[2020-07-21] MEDS ORDERED: AZITHROMYCIN/NS 500 MG/250 ML 500 MG/250 ML BAG IV SCH ×2 (18:00→20:00)
[2020-07-21 18:43] LABS: Hematocrit 39.5 % (30.3-42.9); Hemoglobin 13.1 gm/dl (10.1-14.3)
[2020-07-21] MEDS: IPRATROPIUM/ALBUTEROL SULFATE 3 ML AMPUL.NEB IH SCH ×2 (19:50→20:17)
[2020-07-21] MEDS ORDERED: LORazepam 2 MG/ML VIAL IV PRN (20:24)
[2020-07-22] MEDS: IPRATROPIUM/ALBUTEROL SULFATE 3 ML AMPUL.NEB IH SCH ×3 (00:33→08:23)
[2020-07-22] MEDS: dilTIAZem 30 MG TAB PO SCH ×2 (00:34→05:35)
[2020-07-22] MEDS: methylPREDNISolone Sod Succinate 125 MG/2 ML INJ IV SCH (05:33)
[2020-07-22 06:03] LABS: Calcium 7.7 mg/dL (8.4-10.2)
[2020-07-22] MEDS ORDERED: REMDESIVIR 200 MG in SODIUM CHLORIDE 0.9% 250ML 250 ML IV ONE (10:00)
[2020-07-22] MEDS ORDERED: SODIUM CHLORIDE 0.9% 50 ML IVPB IV SCH (10:00)
[2020-07-22] MEDS ORDERED: dexAMETHasone 4 MG/ML VIAL IV SCH ×2 (10:00→22:00)
[2020-07-22] MEDS ORDERED: METOPROLOL TARTRATE 5 MG/5 ML INJ IV ONE ×3 (10:44→12:00)
[2020-07-22] MEDS ORDERED: cefTRIAXone/NS 2 GM/100 ML 2 GM/100 ML BAG IV SCH (11:00)
[2020-07-22] MEDS ORDERED: FUROSEMIDE 20 MG/2 ML INJ IV ONE (11:00)
--- NOTE | 2020-07-22 11:06 | Progress Note ---
Assessment and Plan COVID-19 testing is positive. Pt tx to CCU overnight, requiring BiPAP. tele reviewed - in SR HR 70s. Agree with PO cardizem at this time. Renal function improving. Heparin gtt converted to full dosage lovenox BID per critical care team. Cont systemic AC in regards to PAFib/AFlutter and consider conversion to OAC prior to hospital discharge. Obtain tte once COVID infection is adequately managed. DDimer is noted to be elevated - further eval/management per primary team. Will follow. The patient has been seen in conjunction with Dr. De Santiago who agrees with the assessment and plan care. - Patient Problems (1) Acute hypoxemic respiratory failure Current Visit: Yes Status: Acute (2) Pneumonia Current Visit: Yes Status: Acute Qualifiers: Pneumonia type: due to unspecified organism Laterality: bilateral Lung location: unspecified part of lung Qualified Code(s): J18.9 - Pneumonia, unspecified organism (3) Suspected 2019 novel coronavirus infection Current Visit: Yes Status: Acute (4) New onset atrial fibrillation Current Visit: Yes Status: Acute Plan to address problem: paroxysmal (5) IKE (acute kidney injury) Current Visit: Yes Status: Acute Subjective Date of service: 07/22/20 Principal diagnosis: COVID Interval history: pt tx to CCU overnight, requiring BiPAP. tele reviewed - in SR HR 70s. Objective Last Vital Signs Temp 97.8 F 07/22/20 08:00 Pulse 77 07/22/20 09:41 Resp 31 H 07/22/20 09:41 BP 124/53 07/22/20 09:41 Pulse Ox 93 07/22/20 09:41 - Physical Examination General: Other (on bipap) HEENT: Positive: PERRL, Normocephaly, Mucus Membranes Moist Neck: Positive: neck supple, trachea midline Cardiac: Positive: Reg Rate and Rhythm, S1/S2 Lungs: Positive: Decreased Breath Sounds, Oxygen Neuro: Positive: Grossly Intact Abdomen: Negative: Tender Skin: Negative: Rash Musculoskeletal: No Pain Extremities: Absent: edema - Labs and Meds Cardiac Enzymes 07/21/20 Range/Units 18:33 Lactate Dehydrogenase 720 H (91-180) units/L CBC 07/21/20 Range/Units 18:33 Hgb 13.1 (10.1-14.3) gm/dl Hct 39.5 (30.3-42.9) % Plt Count 307 (140-440) K/mm3 Comprehensive Metabolic Panel 07/22/20 Range/Units 05:11 Sodium 140 D (137-145) mmol/L Potassium 3.9 (3.6-5.0) mmol/L Chloride 106.5 (98-107) mmol/L Carbon Dioxide 20 L (22-30) mmol/L BUN 59 H (7-17) mg/dL Creatinine 1.2 (0.6-1.2) mg/dL Glucose 209 H (65-100) mg/dL Calcium 7.7 L (8.4-10.2) mg/dL - Imaging and Cardiology EKG: report reviewed, image reviewed Echo: report reviewed - Telemetry EKG Rhythm: Sinus Rhythm
--- NOTE | 2020-07-22 11:10 | Consultation ---
History of Present Illness Consult date: 07/22/20 Requesting physician: NAYELI GONGORA Reason for consult: hypoxemia, other (COVID 19) History of present illness: 74 y/o obese female admitted with acute respiratory failure, found to be COVID positive. Currently on bipap at 100% 18/. Awake and alert. Following commands and able to speak in full sentences although hard to understand given bipap mask. Remdesivir ordered but hospital is currently out. on steroids. Remainder is negative. Past History Past Medical History: No medical history Past Surgical History: No surgical history, Other (Reviewed) Social history: , lives with family. denies: smoking, alcohol abuse, prescription drug abuse Family history: no significant family history, other (Reviewed) Medications and Allergies Allergies Allergy/AdvReac Type Severity Reaction Status Date / Time Penicillins Allergy Unknown Verified 07/20/20 17:25 Active Meds: Active Medications Acetaminophen (Acetaminophen 325 Mg Tab) 650 mg PO Q4H PRN PRN Reason: Pain MILD(1-3)/Fever >100.5/ALONSO Albuterol (Albuterol 2.5 Mg/3 Ml Nebu) 2.5 mg IH Q4HRT PRN PRN Reason: Shortness Of Breath Ascorbic Acid (Ascorbic Acid 500 Mg Tab) 500 mg PO BID [facility] Last Admin: 07/21/20 21:01 Dose: 500 mg Documented by: Cholecalciferol (Cholecalciferol (Vit D3) 1000 Unit (25 Mcg) Tab) 1,000 unit PO QDAY [facility] Last Admin: 07/21/20 09:24 Dose: Not Given Documented by: Dexamethasone (Dexamethasone 4 Mg/Ml Vial) 6 mg IV BID [facility] Stop: 07/30/20 22:01 Diltiazem HCl (Diltiazem 30 Mg Tab) 30 mg PO Q6HR [facility] Last Admin: 07/22/20 05:35 Dose: 30 mg Documented by: Enoxaparin Sodium (Enoxaparin 80 Mg/0.8 Ml Inj) 80 mg SUB-Q Q12HR [facility] Famotidine (Famotidine 20 Mg Tab) 20 mg PO BID [facility] Last Admin: 07/21/20 21:01 Dose: 20 mg Documented by: Dexmedetomidine HCl 200 mcg/ (Sodium Chloride) 50 mls @ 4.2 mls/hr IV TITRATE S CH; Protocol Azithromycin (Zithromax/Ns) 500 mg in 250 mls @ 250 mls/hr IV Q24H [facility]; Protocol Last Admin: 07/21/20 19:38 Dose: 250 mls/hr Documented by: REMDESIVIR 100 mg/ Sodium (Chloride) 250 mls @ 500 mls/hr IV Q24HR@2100 KLAUS Stop: 07/26/20 21:29 Ceftriaxone Sodium (Rocephin/Ns 2 Gm/100 Ml) 2 gm in 100 mls @ 200 mls/hr IV Q24H [facility]; Protocol Lorazepam (Lorazepam 2 Mg/Ml Vial) 0.5 mg IV Q4H PRN PRN Reason: Agitation Last Admin: 07/21/20 21:00 Dose: 0.5 mg Documented by: Ondansetron HCl (Ondansetron 4 Mg/2 Ml Inj) 4 mg IV Q8H PRN PRN Reason: Nausea And Vomiting Sodium Chloride (Sodium Chloride 0.9% 10 Ml Flush Syringe) 10 ml IV BID [facility] Last Admin: 07/22/20 10:04 Dose: 10 ml Documented by: Sodium Chloride (Sodium Chloride 0.9% 10 Ml Flush Syringe) 10 ml IV PRN PRN PRN Reason: LINE FLUSH Sodium Chloride (Sodium Chloride 0.9% 50 Ml Ivpb) 50 ml IV 2100 [facility] Stop: 07/26/20 21:01 Last Admin: 07/22/20 10:07 Dose: Not Given Documented by: Zinc Sulfate (Zinc Sulfate 220 Mg Cap) 220 mg PO BID [facility] Last Admin: 07/21/20 21:01 Dose: 220 mg Documented by: Review of Systems All systems: negative Physical Examination Vital signs: Vital Signs Temp Pulse Resp BP Pulse Ox 98.0 F 133 H 31 H 124/52 95 07/20/20 16:34 07/20/20 16:34 07/20/20 16:34 07/20/20 16:34 07/20/20 16:34 General appearance: no acute distress, alert, appears uncomfortable Eyes: non-icteric ENT: other (full face mask present) Neck: supple Effort: mildly labored Ascultation: Bilateral: diminished breath sounds Percussion: Bilateral: not dull Cardiovascular: irregular rhythm (and tachycardic) Gastrointestinal: normoactive bowel sounds Extremities: pink and warm, pulses normal normal mental status, non-focal exam mood appropriate, anxious, tearful Results - Laboratory Findings CBC and BMP: 07/21/20 18:33 07/22/20 05:11 ABG ABG pH 7.426 (7.320-7.450) 07/21/20 15:02 POC ABG pCO2 30.6 mmHg (32.0-48.0) L 07/21/20 15:02 POC ABG pO2 61.4 mmHg (83-108) L 07/21/20 15:02 POC ABG HCO3 19.7 07/21/20 15:02 ABG O2 Saturation 91.7 (0-100) 07/21/20 15:02 PT/INR, D-dimer PT 13.5 Sec. (12.2-14.9) 07/20/20 17:04 INR 1.05 (0.87-1.13) 07/20/20 17:04 D-Dimer 396.49 ng/mlDDU (0-234) H 07/21/20 18:33 Abnormal lab findings: Abnormal Labs 07/20/20 07/20/20 07/20/20 17:04 17:04 17:04 MCH 27 L Lymph % (Auto) 6.9 L Lymph # (Auto) 0.6 L Seg Neutrophils % 87.8 H Seg Neutrophils # 8.1 H D-Dimer 328.25 H Heparin Anti-Xa Level POC ABG pCO2 POC ABG pO2 ABG Oxyhemoglobin ABG Glucose Sodium Potassium 3.0 L Chloride Carbon Dioxide 18 L BUN 44 H Creatinine 1.6 H Glucose 142 H Calcium 6.3 L Ferritin Lactate Dehydrogenase C-Reactive Protein NT-Pro-B Natriuret Pep 2862 H Total Protein 4.9 L Albumin 2.5 L TSH Arterial Blood Glucose Arterial Blood Ionized Calcium Coronavirus (PCR) 07/20/20 07/20/20 07/20/20 17:04 17:59 17:59 MCH Lymph % (Auto) Lymph # (Auto) Seg Neutrophils % Seg Neutrophils # D-Dimer Heparin Anti-Xa Level POC ABG pCO2 POC ABG pO2 ABG Oxyhemoglobin ABG Glucose Sodium Potassium Chloride Carbon Dioxide BUN Creatinine Glucose Calcium Ferritin 774.0 H Lactate Dehydrogenase 611 H C-Reactive Protein 11.90 H NT-Pro-B Natriuret Pep Total Protein Albumin TSH 0.164 L Arterial Blood Glucose Arterial Blood Ionized Calcium Coronavirus (PCR) 07/20/20 07/21/20 07/21/20 19:33 03:13 03:13 MCH Lymph % (Auto) 9.8 L Lymph # (Auto) 1.1 L Seg Neutrophils % 86.3 H Seg Neutrophils # 9.4 H D-Dimer Heparin Anti-Xa Level POC ABG pCO2 POC ABG pO2 52.0 L ABG Oxyhemoglobin 84.1 L ABG Glucose 142 H Sodium 121 L D Potassium Chloride 89.8 L Carbon Dioxide 19 L BUN 49 H Creatinine 1.5 H Glucose 149 H Calcium 7.1 L Ferritin Lactate Dehydrogenase C-Reactive Protein NT-Pro-B Natriuret Pep Total Protein Albumin TSH Arterial Blood Glucose 142 H Arterial Blood Ionized Calcium 4.3 L Coronavirus (PCR) 07/21/20 07/21/20 07/21/20 15:02 18:33 18:33 MCH Lymph % (Auto) Lymph # (Auto) Seg Neutrophils % Seg Neutrophils # D-Dimer 396.49 H Heparin Anti-Xa Level 1.47 H POC ABG pCO2 30.6 L POC ABG pO2 61.4 L ABG Oxyhemoglobin 91.0 L ABG Glucose 162 H Sodium Potassium Chloride Carbon Dioxide BUN Creatinine Glucose Calcium Ferritin 808.4 H Lactate Dehydrogenase C-Reactive Protein NT-Pro-B Natriuret Pep Total Protein Albumin TSH Arterial Blood Glucose 162 H Arterial Blood Ionized Calcium Coronavirus (PCR) 07/21/20 07/21/20 07/22/20 18:33 Unknown 05:11 MCH Lymph % (Auto) Lymph # (Auto) Seg Neutrophils % Seg Neutrophils # D-Dimer Heparin Anti-Xa Level POC ABG pCO2 POC ABG pO2 ABG Oxyhemoglobin ABG Glucose Sodium Potassium Chloride Carbon Dioxide 20 L BUN 59 H Creatinine Glucose 209 H Calcium 7.7 L Ferritin Lactate Dehydrogenase 720 H C-Reactive Protein 11.00 H NT-Pro-B Natriuret Pep Total Protein Albumin TSH Arterial Blood Glucose Arterial Blood Ionized Calcium Coronavirus (PCR) Positive A 07/22/20 05:11 MCH Lymph % (Auto) Lymph # (Auto) Seg Neutrophils % Seg Neutrophils # D-Dimer Heparin Anti-Xa Level 0.76 H POC ABG pCO2 POC ABG pO2 ABG Oxyhemoglobin ABG Glucose Sodium Potassium Chloride Carbon Dioxide BUN Creatinine Glucose Calcium Ferritin Lactate Dehydrogenase C-Reactive Protein NT-Pro-B Natriuret Pep Total Protein Albumin TSH Arterial Blood Glucose Arterial Blood Ionized Calcium Coronavirus (PCR) - Diagnostic Findings Chest x-ray: image reviewed (mild cardiomegaly with bilateral alveolar infiltrates) Assessment and Plan 74 y/o female, obese, admitted with acute respiratory failure secondary to COVID pneumonia 1. Agree with Remdesivir 2. Will increase steroids to 6 BID 3. Change heparin to BID lovenox to limit in and out of room and numerous blood draws 4. Will do lasix 20mg IV x1 now 5. Prone as tolerated and sleep prone at night 6. Stop all nebulizer and switch to puffers if we have any. 7. Remainder of the review is negative. Guarded prognosis.
--- NOTE | 2020-07-22 11:11 | Progress Note ---
Assessment and Plan Cultures: Blood culture pending SARS CoV2 PCR pending Assessment: 74 years old female with history of morbid obesity, chronic lumbar spine problems, admitted on 07/20/2020 secondary to a week history of generalized malaise, weakness, dry cough, shortness of breath, symptoms worsened in the last 3 days: #Severe sepsis: likely secondary to bilateral pneumonia. Procalcitonin elevated at 0.4 in the setting of acute renal failure, unclear significance. #Severe COVID-19 pneumonia: markers worsening. Chest x-ray with bilateral infiltrates. #Acute hypoxemic respiratory failure: O2 sat dropped to 70s. Now BIPAP 100% #IKE: better. Likely secondary to severe COVID-19 infection #RVR A. fib: Due to sepsis #Morbid obesity #Penicillin allergy: received ceftriaxone no reactions Recommendations: -Pulmonary on board -agree with higher dose Dexamethasone 6 mg IV/PO BID -indication for Remdesivir for 5 days, [facility] out of stock -Monitor inflammatory markers - ferritin, Ddimer, CRP, LDH -Continue anticoagulation per System Protocol -Prone positioning as possible -Continue ceftriaxone and azithromycin, for now -Follow-up blood cultures All laboratory, cultures and imaging were reviewed. Guarded prognosis Will follow Mary Meade MD Infectious [facility], [place] [facility] M [phone] O [phone] Subjective Date of service: 07/22/20 Principal diagnosis: COVID Interval history: Now on BIPAP FiO2 100%, sats 91, on heparin gtt in the ICU Objective - Exam Narrative Exam: General appearance: Alert in NAD on BIPAP Eyes: anicteric sclerae, moist conjunctivae; no lid-lag; PERRLA HENT: Normocephalic, Atraumatic; normal external ears, nares open, oropharynx limited due to BIPAP Neck: supple, tracheal midline, no JVD Lungs: pantera rhonchi CV: RRR no murmur Abdomen: Soft, non-tender; no masses Extremities: no edema, no cyanosis Skin: No rash. Psych: no agitated Neuro: alert and oriented x 3. Moving all extermities - Constitutional Vitals: Vital Signs Temp Pulse Resp BP Pulse Ox 97.8 F 77 31 H 124/53 93 07/22/20 08:00 07/22/20 09:41 07/22/20 09:41 07/22/20 09:41 07/22/20 09:41 Temperature -Last 24 Hours Temperature 97.8 F Temperature 98.0 F Temperature 98.3 F Temperature 98.8 F Temperature 98.3 F Temperature 98.2 F Temperature 98.3 F - Labs CBC & Chem 7: 07/21/20 18:33 07/22/20 05:11 Labs: Abnormal lab results 07/21/20 07/21/20 07/21/20 Range/Units 15:02 18:33 18:33 D-Dimer 396.49 H (0-234) ng/mlDDU Heparin Anti-Xa Level 1.47 H (0.3-0.7) U.I./ml POC ABG pCO2 30.6 L (32.0-48.0) mmHg POC ABG pO2 61.4 L (83-108) mmHg ABG Oxyhemoglobin 91.0 L (94-98) ABG Glucose 162 H (65-95) mg/dL Carbon Dioxide (22-30) mmol/L BUN (7-17) mg/dL Glucose (65-100) mg/dL Calcium (8.4-10.2) mg/dL Ferritin 808.4 H (10.0-200.0) ng/mL Lactate Dehydrogenase (91-180) units/L C-Reactive Protein (0.00-1.30) mg/dL Arterial Blood Glucose 162 H (65-95) mg/dL Coronavirus (PCR) (Negative) 07/21/20 07/21/20 07/22/20 Range/Units 18:33 Unknown 05:11 D-Dimer (0-234) ng/mlDDU Heparin Anti-Xa Level (0.3-0.7) U.I./ml POC ABG pCO2 (32.0-48.0) mmHg POC ABG pO2 (83-108) mmHg ABG Oxyhemoglobin (94-98) ABG Glucose (65-95) mg/dL Carbon Dioxide 20 L (22-30) mmol/L BUN 59 H (7-17) mg/dL Glucose 209 H (65-100) mg/dL Calcium 7.7 L (8.4-10.2) mg/dL Ferritin (10.0-200.0) ng/mL Lactate Dehydrogenase 720 H (91-180) units/L C-Reactive Protein 11.00 H (0.00-1.30) mg/dL Arterial Blood Glucose (65-95) mg/dL Coronavirus (PCR) Positive A (Negative) 07/22/20 Range/Units 05:11 D-Dimer (0-234) ng/mlDDU Heparin Anti-Xa Level 0.76 H (0.3-0.7) U.I./ml POC ABG pCO2 (32.0-48.0) mmHg POC ABG pO2 (83-108) mmHg ABG Oxyhemoglobin (94-98) ABG Glucose (65-95) mg/dL Carbon Dioxide (22-30) mmol/L BUN (7-17) mg/dL Glucose (65-100) mg/dL Calcium (8.4-10.2) mg/dL Ferritin (10.0-200.0) ng/mL Lactate Dehydrogenase (91-180) units/L C-Reactive Protein (0.00-1.30) mg/dL Arterial Blood Glucose (65-95) mg/dL Coronavirus (PCR) (Negative)
[2020-07-22 11:43] LABS: Albumin 2.4 g/dL (3.9-5); Calcium 8.1 mg/dL (8.4-10.2)
--- NOTE | 2020-07-22 12:01 | Progress Note ---
Assessment and Plan Assessment and plan: Severe sepsis -Infectious disease consulted, appreciate recommendations -Antibiotic therapy -07/20 blood cultures x2 with no growth to date COVID-19 pneumonia -Evidenced on CXR -07/21 COVID-19 PCR positive -Indication for remdesivir therapy however [facility] is out of stock -Antibiotic therapy -Steroid therapy -Anticoagulation per protocol -Supplemental oxygen as needed, wean as tolerated -ID and pulmonology consulted, appreciate recommendations Acute hypoxic respiratory failure -Supplementary oxygenation as needed -Wean as tolerated -Pulmonary hygiene Acute kidney injury -Presented with a CR/BUN of 1.6/44 -Trend BMP -Consider nephrology consult if not improving Hypokalemia -Replete and trend BMP Metabolic acidosis -Trend BMP DVT/GI prophylaxis: Lovenox subcu, PPI, SCDs to bilateral lower extremities while in bed Dispo: ICU History Interval history: This is a 74-year-old female with chronic back pain who presented to the emergency department on 07/20 with complaints of generalized weakness, multiple loose stools, shortness of breath, malaise, fatigue, decreased exercise tolerance and dry cough for the past week worsening over the past 3 days before presentation. On arrival of EMS patient SPO2 on room air was 65%on nonrebreather mask and transported the ED. Upon arrival patient's SPO2 on room air was 70% and CXR revealed bilateral pneumonia. Patient was found to have acute kidney injury, acidosis and new onset atrial fibrillation with RVR (HR 150 -190 BPM). Patient was treated with medical conversion with normalization of heart rate with Cardizem and cardiology was consulted in the emergency department. Infectious disease and CCM were later consulted. 07/21: Patient transferred to ICU for increased oxygen requirements and a COVID-19 PCR resulted as positive. 07/22: Patient was transferred to the ICU yesterday afternoon for increased oxygen requirements. At the time of my examination this mornig she was on 100% BiPAP 16/10. Her decadron was increased to BID dosing and remdisivir was ordered. We will continue abx per ID. Patients heparin gtt was changed to BID lovenox and a trial dose of lasix was ordered. She later went back into Aifb RVR and was given 5mg Lopressor. She then into SVT and was coded. See code record for nilsa sanchez. Severe sepsis COVID 19 PNA Acute hypoxic respiratory failure Atrial fibrillation with RVR Acute kidney injury Morbid obesity Possible KATY Hypokalemia Metabolic acidosis Hypocalcemia Hyperglycemia Hospitalist Physical - Constitutional Vitals: Temp Pulse Resp BP Pulse Ox 97.8 F 77 31 H 124/53 93 07/22/20 08:00 07/22/20 09:41 07/22/20 09:41 07/22/20 09:41 07/22/20 09:41 General appearance: Present: mild distress, well-nourished, obese (Morbidly obese), other (On BiPAP) - EENT Eyes: Present: PERRL - Neck Neck: Present: normal ROM - Respiratory Respiratory effort: normal Respiratory: bilateral: diminished - Cardiovascular Rhythm: regular Heart Sounds: Present: S1 & S2. Absent: systolic murmur, diastolic murmur - Extremities Extremities: no ischemia, pulses intact, pulses symmetrical, No edema, normal temperature, normal color, Full ROM Peripheral Pulses: within normal limits - Abdominal General gastrointestinal: soft, non-tender, non-distended, normal bowel sounds - Integumentary Integumentary: Present: warm, dry - Psychiatric Psychiatric: cooperative - Neurologic Neurologic: CNII-XII intact, no focal deficits, moves all extremities HEART Score - HEART Score Troponin: Troponin T < 0.010 ng/mL (0.00-0.029) 07/21/20 00:00 Results - Labs CBC & Chem 7: 07/21/20 18:33 07/22/20 11:01 Labs: Laboratory Last Values WBC 10.9 K/mm3 (4.5-11.0) 07/21/20 03:13 RBC 4.95 M/mm3 (3.65-5.03) 07/21/20 03:13 Hgb 13.1 gm/dl (10.1-14.3) 07/21/20 18:33 Hct 39.5 % (30.3-42.9) 07/21/20 18:33 MCV 84 fl (79-97) 07/21/20 03:13 MCH 28 pg (28-32) 07/21/20 03:13 MCHC 33 % (30-34) 07/21/20 03:13 RDW 14.3 % (13.2-15.2) 07/21/20 03:13 Plt Count 307 K/mm3 (140-440) 07/21/20 18:33 Lymph % (Auto) 9.8 % (13.4-35.0) L 07/21/20 03:13 Mower % (Auto) 3.6 % (0.0-7.3) 07/21/20 03:13 Eos % (Auto) 0.1 % (0.0-4.3) 07/21/20 03:13 Baso % (Auto) 0.2 % (0.0-1.8) 07/21/20 03:13 Lymph # (Auto) 1.1 K/mm3 (1.2-5.4) L 07/21/20 03:13 Mower # (Auto) 0.4 K/mm3 (0.0-0.8) 07/21/20 03:13 Eos # (Auto) 0.0 K/mm3 (0.0-0.4) 07/21/20 03:13 Baso # (Auto) 0.0 K/mm3 (0.0-0.1) 07/21/20 03:13 Seg Neutrophils % 86.3 % (40.0-70.0) H 07/21/20 03:13 Seg Neutrophils # 9.4 K/mm3 (1.8-7.7) H 07/21/20 03:13 PT 13.5 Sec. (12.2-14.9) 07/20/20 17:04 INR 1.05 (0.87-1.13) 07/20/20 17:04 APTT 27.7 Sec. (24.2-36.6) 07/20/20 17:04 D-Dimer 396.49 ng/mlDDU (0-234) H 07/21/20 18:33 Heparin Anti-Xa Level 0.72 U.I./ml (0.3-0.7) H 07/22/20 11:01 ABG pH 7.426 (7.320-7.450) 07/21/20 15:02 POC ABG pCO2 30.6 mmHg (32.0-48.0) L 07/21/20 15:02 POC ABG pO2 61.4 mmHg (83-108) L 07/21/20 15:02 POC ABG HCO3 19.7 07/21/20 15:02 ABG O2 Saturation 91.7 (0-100) 07/21/20 15:02 POC ABG Base Excess -3.5 07/21/20 15:02 ABG Hemoglobin 14.4 (12.0-17.5) 07/21/20 15:02 ABG Oxyhemoglobin 91.0 (94-98) L 07/21/20 15:02 ABG Methemoglobin 0.3 (0.0-1.5) 07/21/20 15:02 ABG Sodium 139.2 mmol/L (136.0-145.0) 07/21/20 15:02 ABG Potassium 3.8 mmol/L (3.40-4.50) 07/21/20 15:02 ABG Chloride 107.0 mmol/L (98-107) 07/21/20 15:02 ABG Glucose 162 mg/dL (65-95) H 07/21/20 15:02 Carboxyhemoglobin 0.5 (0.5-1.5) 07/21/20 15:02 FiO2 % 100 07/21/20 15:02 Sodium 141 mmol/L (137-145) 07/22/20 11:01 Potassium 3.5 mmol/L (3.6-5.0) L 07/22/20 11:01 Chloride 106.6 mmol/L (98-107) 07/22/20 11:01 Carbon Dioxide 21 mmol/L (22-30) L 07/22/20 11:01 Anion Gap 17 mmol/L 07/22/20 11:01 BUN 56 mg/dL (7-17) H 07/22/20 11:01 Creatinine 1.0 mg/dL (0.6-1.2) 07/22/20 11:01 Estimated GFR 54 ml/min 07/22/20 11:01 BUN/Creatinine Ratio 56 % 07/22/20 11:01 Glucose 213 mg/dL (65-100) H 07/22/20 11:01 Calcium 8.1 mg/dL (8.4-10.2) L 07/22/20 11:01 Magnesium 2.10 mg/dL (1.7-2.3) 07/20/20 19:24 Ferritin 808.4 ng/mL (10.0-200.0) H 07/21/20 18:33 Total Bilirubin 0.20 mg/dL (0.1-1.2) 07/22/20 11:01 AST 29 units/L (5-40) 07/22/20 11:01 ALT 15 units/L (7-56) 07/22/20 11:01 Alkaline Phosphatase 72 units/L (35-129) 07/22/20 11:01 Lactate Dehydrogenase 720 units/L (91-180) H 07/21/20 18:33 Troponin T < 0.010 ng/mL (0.00-0.029) 07/21/20 00:00 C-Reactive Protein 11.00 mg/dL (0.00-1.30) H 07/21/20 18:33 NT-Pro-B Natriuret Pep 2862 pg/mL (0-900) H 07/20/20 17:04 Total Protein 6.2 g/dL (6.3-8.2) L D 07/22/20 11:01 Albumin 2.4 g/dL (3.9-5) L 07/22/20 11:01 Albumin/Globulin Ratio 0.6 % 07/22/20 11:01 Procalcitonin 0.41 ng/mL (<0.15) 07/20/20 17:59 TSH 0.164 mlU/mL (0.270-4.200) L 07/20/20 17:04 Free T4 1.14 ng/dL (0.76-1.46) 07/20/20 17:04 Arterial Blood Glucose 162 mg/dL (65-95) H 07/21/20 15:02 Arterial Blood Ionized Calcium 4.6 mg/dL (4.6-5.3) 07/21/20 15:02 Coronavirus (PCR) Positive (Negative) A 07/21/20 Unknown Microbiology: Microbiology 07/20/20 17:06 Peripheral/Venous Blood Culture - Preliminary NO GROWTH AFTER 24 HOURS 07/20/20 17:04 Peripheral/Venous Blood Culture - Preliminary NO GROWTH AFTER 24 HOURS Rodriguez/IV: Voiding Method External Female Catheter Active Medications - Current Medications Current Medications: Generic Name Dose Route Start Last Admin Trade Name Freq PRN Reason Stop Dose Admin Acetaminophen 650 mg 07/20/20 18:25 Acetaminophen 325 Mg Tab PO Q4H PRN Pain MILD(1-3)/Fever >100.5/ALONSO Albuterol 2.5 mg 07/20/20 18:25 Albuterol 2.5 Mg/3 Ml Nebu IH Q4HRT PRN Shortness Of Breath Ascorbic Acid 500 mg 07/20/20 22:00 07/21/20 21:01 Ascorbic Acid 500 Mg Tab PO 500 mg BID KLAUS Administration Cholecalciferol 1,000 unit 07/21/20 10:00 07/21/20 09:24 Cholecalciferol (Vit D3) 1000 Unit (25 Mcg) Tab PO Not Given QDAY [facility] Dexamethasone 6 mg 07/22/20 22:00 Dexamethasone 4 Mg/Ml Vial IV 07/30/20 22:01 BID [facility] Diltiazem HCl 30 mg 07/21/20 00:00 07/22/20 05:35 Diltiazem 30 Mg Tab PO 30 mg Q6HR KLAUS Administration Enoxaparin Sodium 80 mg 07/22/20 22:00 Enoxaparin 80 Mg/0.8 Ml Inj SUB-Q Q12HR [facility] Famotidine 20 mg 07/20/20 22:00 07/21/20 21:01 Famotidine 20 Mg Tab PO 20 mg BID [facility] Administration Ondansetron HCl 4 mg 07/20/20 18:25 Ondansetron 4 Mg/2 Ml Inj IV Q8H PRN Nausea And Vomiting Sodium Chloride 10 ml 07/20/20 22:00 07/22/20 10:04 Sodium Chloride 0.9% 10 Ml Flush Syringe IV 10 ml BID KLAUS Administration Sodium Chloride 10 ml 07/20/20 18:25 Sodium Chloride 0.9% 10 Ml Flush Syringe IV PRN PRN LINE FLUSH Sodium Chloride 50 ml 07/22/20 10:00 07/22/20 10:07 Sodium Chloride 0.9% 50 Ml Ivpb IV 07/26/20 21:01 Not Given 2100 KLAUS Zinc Sulfate 220 mg 07/20/20 22:00 07/21/20 21:01 Zinc Sulfate 220 Mg Cap PO 220 mg BID KLAUS Administration
--- NOTE | 2020-07-22 12:06 | Event Note ---
Date: 07/22/20 Went to bedside secondary to heart rate being in the 200's. Patient completely unresponsive, not breathing, no pulse. CPR started and code called. Epi x5, 2 bicarbs, 1 calcium, 2 bicarbs and shocked 2x and amio 300 and 150 were given as well. Patient was in what appeared to be refractory vfib. Difficult intubation secondary to neck size and very anterior airway. Took several minutes even using the glide scope to get the airway. On last pulse check, patient was in asystole. Discussion had and code called. Time of 11:53. IMS and COMMUNITY HEALTH ADVISOR were attempting to contact . CCT [id number]
--- NOTE | 2020-07-22 12:07 | Event Note ---
Date: 07/22/20 JAYESH BELTRÁN was called at 1136 patient was resuscitated according to ACLS protocol. JAYESH BELTRÁN was run by plaster mechanic Dr. Lopez. We will try to reach to her Gilberto multiple times but he could not tack picker his phone. We will try to reach to her sister and she said she has no contact with her sister and do not know what is going on. She said she had 3 sons and the only phone number she knew is Mikal's number which the mother doesn't want to call him. We called Mikal and he confirmed that she is to Gilberto. patient and I called Mikal and told him. He was swearing and cursing over the phone and doesn't listen to me.
--- NOTE | 2020-07-22 13:30 | Death Summary ---
Summary - Providers Consults: 07/20/20 18:25 Consult to Physician [CONS] Routine Comment: Consulting Provider: POOJA SPIVEY Physician Instructions: Reason For Exam: pui 07/20/20 18:40 Consult to Physician [CONS] Routine Comment: Consulting Provider: VETO MONTANO Physician Instructions: Reason For Exam: atrial fib, new onset 07/21/20 14:55 Consult to Physician [CONS] Urgent Comment: dr bharti ely/ puja Consulting Provider: GEORGE FLEMING Physician Instructions: Reason For Exam: Acute hypoxic hypercapnic respiratory failure 07/21/20 16:05 Consult to Physician [CONS] Urgent Comment: Consulting Provider: GEORGE FLEMING Physician Instructions: Reason For Exam: Acute hypoxic hypercapnic respiratory failure 07/21/20 16:55 Consult to Physician [CONS] Routine Comment: Consulting Provider: POOJA SPIVEY Physician Instructions: Reason For Exam: Nicholson PCR positive/hypoxic respiratory failure Attending: ELIJAH FREY MD - summary Date of admission: 07/20/20 18:25 Date of : 07/22/20 Reason for admission: COVID 19 PNA, Afib w/ RVR Significant findings: This is a 74-year-old female with chronic back pain who presented to the emergency department on 07/20 with complaints of generalized weakness, multiple loose stools, shortness of breath, malaise, fatigue, decreased exercise tolerance and dry cough for the past week worsening over the past 3 days before presentation. On arrival of EMS patient SPO2 on room air was 65%on nonrebreather mask and transported the ED. Upon arrival patient's SPO2 on room air was 70% and CXR revealed bilateral pneumonia. Patient was found to have acute kidney injury, acidosis and new onset atrial fibrillation with RVR (HR 150 -190 BPM). Patient was treated with medical conversion with normalization of heart rate with Cardizem and cardiology was consulted in the emergency department. Infectious disease and [facility] were later consulted. On 07/21 patient was transferred to the ICU for increased oxygen requirement and her COVID-19 PCR resulted as positive. On 07/22 patient was 100% FiO2 BiPAP 16/10, Decadron dosing was increased, remdesivir ordered, continue antibiotics per ID and heparin drip was discontinued and changed to twice daily Lovenox. Patient was given a trial dose of Lasix. Around noon she was noted to be in atrial fibrillation with RVR and was given 5 mg Lopressor. Patient then went into SVT/torsades and subsequently lost her pulse and was coded. Patient received 4 g of epinephrine, 2 A of bicarb, calcium was shocked twice. See code sheet for details. Severe sepsis COVID 19 PNA Acute hypoxic respiratory failure Atrial fibrillation with RVR Acute kidney injury Morbid obesity Possible KATY Hypokalemia Metabolic acidosis Hypocalcemia Hyperglycemia Assessment and Plan Severe sepsis -Infectious disease consulted, appreciate recommendations -Antibiotic therapy -07/20 blood cultures x2 with no growth to date COVID-19 pneumonia -Evidenced on CXR -07/21 COVID-19 PCR positive -Indication for remdesivir therapy however [facility] is out of stock -Antibiotic therapy -Steroid therapy -Anticoagulation per protocol -Supplemental oxygen as needed, wean as tolerated -ID and pulmonology consulted, appreciate recommendations Acute hypoxic respiratory failure -Supplementary oxygenation as needed -Wean as tolerated -Pulmonary hygiene Acute kidney injury -Presented with a CR/BUN of 1.6/44 -Trend BMP Hypokalemia -Replete and trend BMP Metabolic acidosis -Trend BMP - Final diagnosis (1) Pneumonia due to COVID-19 virus Note: Final diagnosis: (2) Sepsis Note: Final diagnosis: (3) Acute hypoxemic respiratory failure Note: Final diagnosis: (4) Acute kidney injury (IKE) with acute tubular necrosis (ATN) Note: Final diagnosis: (5) Atrial fibrillation with RVR Note: Final diagnosis:
[2020-07-22 14:19] VITALS: BP 115/70
[2020-07-22] MEDS ORDERED: ENOXAPARIN 80 MG/0.8 ML INJ SUB-Q SCH (22:00)
--- NOTE | 2020-07-23 10:57 | Electrocardiograph Report ---
[facility] Test Date: 2020-07-20 Test Time: 16:45:50 Pat Name: DELMER ALEXIS Department: Room: A253 Gender: F [employer] Supervisor: TOSHIA : 1945 Requested By: YAMILA REBOLLEDO Order Number: [id number] Reading MD: Lucio De Santiago Measurements Intervals [place] Rate: 137 P: ME: QRS: 15 QRSD: 94 T: -10 QT: 311 QTc: 471 Interpretive Statements Atrial fibrillation Ventricular premature complex Inferoposterior infarct, recent No previous ECG available for comparison Electronically Signed On 07-23-2020 7:57:03 PDT by Lucio De Santiago
[2020-07-23] MEDS ORDERED: REMDESIVIR 100 MG in SODIUM CHLORIDE 0.9% 250ML 250 ML IV SCH (21:00)
== END 2020-07-22 18:04 | DRG 871 ==
LOC: ED 16:07 → 3A 18:25 → CC1 07-21 15:17
PROVIDERS: ADMIT Internal Medicine; ATTEND Internal Medicine
PROC: 5A09457 Assistance with Respiratory Ventilation, 24-96 Consecutive Hours, Continuous Positive Airway Pressure (ICD-10-PCS; 2020-07-20)
PROC: 4A033R1 Measurement of Arterial Saturation, Peripheral, Percutaneous Approach (ICD-10-PCS; principal; 2020-07-21)
PROC: XW033E5 Introduction of Remdesivir Anti-infective into Peripheral Vein, Percutaneous Approach, New Technology Group 5 (ICD-10-PCS; 2020-07-22)
PROC: 5A12012 Performance of Cardiac Output, Single, Manual (ICD-10-PCS; 2020-07-22)
DX: A41.89 Other specified sepsis (principal); J96.01 Acute respiratory failure with hypoxia; N17.0 Acute kidney failure with tubular necrosis; U07.1 COVID-19; J12.82 Pneumonia due to coronavirus disease 2019; J96.02 Acute respiratory failure with hypercapnia; E66.2 Morbid (severe) obesity with alveolar hypoventilation; Z68.41 Body mass index [BMI] 40.0-44.9, adult; I48.92 Unspecified atrial flutter; R65.20 Severe sepsis without septic shock; I48.0 Paroxysmal atrial fibrillation; E87.6 Hypokalemia; E83.51 Hypocalcemia; R73.9 Hyperglycemia, unspecified; Z88.0 Allergy status to penicillin
CPT/HCPCS: 36415; 36600; 71045; 74022; 80048; 80053; 82728; 82805; 82962; 83615; 83735; 83880; 84145; 84439; 84443; 84484; 85014; 85018; 85025; 85049; 85379; 85520; 85610; 85730; 86140; 87040; 93005; 94640; 94660; 96365; 96366; 96367; 96368; 96375; G0378; J0456; J0696; J1100; J1644; J2060; J2920; J2930; J3480; J7030; U0003